=== PATIENT | male | born 1945 | race Caucasian/White ===

== ENCOUNTER 2017-01-03 21:52 | Observation (INO) ==
[2017-01-03] MEDS ORDERED: Aspirin 81 MG TAB.CHEW PO ONE (22:11)
[2017-01-03 22:31] LABS: Basophils # 0.1 K/mcL (0.0-0.2); Basophils % 0.7 %; Eosinophils # 0.1 K/mcL (0.0-0.6); Eosinophils % 0.8 %; Hematocrit 46.4 % (37.5-50.1); Immature Granulocytes % 0.4 % (0-4); Lymphocytes # 2.3 K/mcL (0.6-4.6); Lymphocytes % 25.8 %; Mean Corpuscular HGB Conc 34.5 g/dL (31.6-35.5); Mean Corpuscular Volume 89.9 fL (83.0-100.0); Mean Platelet Volume 9.3 fL (9.4-12.4); Monocytes # 0.6 K/mcL (0.0-1.3); Monocytes % 7.1 %; Neutrophils # 5.8 K/mcL (1.6-8.9); Platelet Count 286 K/mcL (140-400); Red Cell Distribution Width 12.4 % (11.5-14.5); Segmented Neutrophils % 65.2 %
[2017-01-03 22:32] LABS: INR 1.1; Prothrombin Time 11.9 Seconds (9.4-12.1); Red Blood Count 5.16 M/mcL (4.19-5.50)
[2017-01-03 22:35] LABS: Activated Partial Thrombo Time 30.8 Seconds (26.0-36.0)
[2017-01-03 22:40] LABS: BUN/Creatinine Ratio 21 (6-26); Blood Urea Nitrogen 19 mg/dL (8-26); Calcium 10.3 mg/dL (8.6-10.8); Carbon Dioxide 25 mEq/L (19-29); Chloride 101 mEq/L (98-109); Glucose 169 mg/dL (70-99); Osmolality,Calculated 288 (280-300); Potassium 3.8 mEq/L (3.5-4.5); Sodium 136 mEq/L (136-145); eGFR For African Americans > 60 (> 60); eGFR For Non-African Americans > 60 (> 60)
[2017-01-03] MEDS ORDERED: Nitroglycerin 1 INCH/GM PACKET TP ONE (23:01)
[2017-01-04] MEDS ORDERED: *HR* Heparin 5,000 UNIT/ML VIAL IVP PRN ×2 (01:41)
[2017-01-04] MEDS ORDERED: *HR* Heparin 5,000 UNIT/ML VIAL IVP ONE (01:41)
[2017-01-04] MEDS ORDERED: *HR* Ticagrelor 90 MG TABLET PO ONE (01:41)
[2017-01-04] MEDS ORDERED: Heparin 25,000 UNIT/500 ML D5W 25,000 UNIT/500 ML MLS IVC SCH (01:45)
--- NOTE | 2017-01-04 02:04 | Emergency Department Note ---
General Adult HPI - General Chief complaint: ED Chest Pain Stated complaint: chest pain Source: patient Limitations: no limitations Nursing Notes Reviewed: Yes Vital Signs Reviewed: Yes - History of Present Illness HPI Narrative: This is a 71-year-old male presents with concern for chest pain. He has 3 cardiac stents. He has seen Dr. Mcbride in the past. He admits to belching as well as upper abdominal fullness over the past few hours. He has no fever, chills, night sweats. He feels like he needs to burp. Pain Scale: 0 - Related Data Allergies Allergy/AdvReac Type Severity Reaction Status Date / Time codeine AdvReac Vomiting Verified 01/03/17 22:53 nitroglycerin AdvReac Hypotension Verified 01/03/17 22:53 All systems ED: reviewed and negative except as stated. Past Medical History - Past Medical History Medical history: Reports: diabetes, hyperlipidemia, hypertension Psychiatric history: Reports: no psych history - Social History Smoking Status: Former smoker Smokeless Tobacco Status: No Alcohol use: Reports: none Drug use: Reports: unknown Physical Exam - General Limitations: no limitations General appearance: alert, in no apparent distress - Head Head exam: atraumatic - Eye Eye exam: Present: normal appearance - ENT ENT exam: normal exam, normal oropharynx - Neck Neck exam: Present: normal inspection, full ROM - Chest Chest inspection: Present: normal inspection - Respiratory Respiratory exam: Present: normal lung sounds bilaterally - Cardiovascular Cardiovascular exam: Present: regular rate, normal rhythm - Abdominal Exam Abdominal exam: Present: soft, Non-Tender - Male exam: Present: normal inspection - Extremities Exam Extremities exam: Present: normal inspection, full ROM - Expanded Lower Extremity Exam Hip/Pelvis exam: Present: normal inspection, full ROM Upper leg exam: Present: normal inspection, full ROM Neurovascular/Tendon exam: Present: normal capillary refill Gait: observed and normal - Back Exam Back exam: Present: normal inspection, full ROM - Neurological Exam Neurological exam: Present: alert, oriented X3, CN II-XII intact - Psychiatric Psychiatric exam: Present: normal affect, normal mood - Skin Skin exam: Present: warm, dry Course Vital Signs Temperature 98.3 F 01/03/17 21:54 Pulse Rate 87 01/03/17 21:54 Respiratory Rate 18 01/03/17 21:54 Blood Pressure 196/98 01/03/17 21:54 O2 Sat by Pulse Oximetry 98 01/03/17 21:54 Temperature 98.3 F 01/03/17 21:54 Pulse Rate 84 01/04/17 00:07 Respiratory Rate 18 01/04/17 00:07 Blood Pressure 113/75 01/04/17 00:07 O2 Sat by Pulse Oximetry 98 01/04/17 00:07 Oxygen Delivery Oxygen Delivery Room Air Medical Decision Making - MDM Narrative Medical decision making narrative: Male patient with typical anginal symptoms. History of coronary artery disease. Nitroglycerin and aspirin administered. Initial EKG shows sinus rhythm with nonspecific ST segment changes. He did have diaphoresis as well as ongoing belching in the department and his EKG was repeated. It does show some changes in leads 2, 3, aVF. There are nonspecific. Upon reviewing these changes I immediately called the fire control assistant and showed him a copy of the EKG. There is no intervention at this time. Heparin in [place] to. A third EKG was repeated which shows improvement of the previously found changes. Patient will be admitted to the floor with consult the loom control chain builder. - Medical Records Medical records reviewed: Yes I reviewed the patient's medical records. - Lab Data Lab results reviewed: Yes I reviewed the patient's lab results. Result diagrams: 01/03/17 22:10 01/03/17 22:10 Lab Results 01/03/17 01/03/17 01/03/17 Range/Units 22:10 22:10 22:10 WBC 8.9 (4.3-11.1) K/mcL RBC 5.16 (4.19-5.50) M/mcL Hgb 16.0 (12.9-16.9) g/dL Hct 46.4 (37.5-50.1) % MCV 89.9 (83.0-100.0) fL MCH 31.0 (28.0-33.3) pg MCHC 34.5 (31.6-35.5) g/dL RDW 12.4 (11.5-14.5) % Plt Count 286 (140-400) K/mcL MPV 9.3 L (9.4-12.4) fL Immature Gran % 0.4 (0-4) % Seg Neutrophils % 65.2 % Lymphocytes % 25.8 % Monocytes % 7.1 % Eosinophils % 0.8 % Basophils % 0.7 % Neutrophils # 5.8 (1.6-8.9) K/mcL Lymphocytes # 2.3 (0.6-4.6) K/mcL Monocytes # 0.6 (0.0-1.3) K/mcL Eosinophils # 0.1 (0.0-0.6) K/mcL Basophils # 0.1 (0.0-0.2) K/mcL PT 11.9 (9.4-12.1) Seconds INR 1.1 APTT 30.8 (26.0-36.0) Seconds Sodium (136-145) mEq/L Potassium (3.5-4.5) mEq/L Chloride (98-109) mEq/L Carbon Dioxide (19-29) mEq/L BUN (8-26) mg/dL Creatinine (0.72-1.25) mg/dL Est GFR ( Amer) (> 60) Est GFR (Non-Af Amer) (> 60) BUN/Creatinine Ratio (6-26) Glucose (70-99) mg/dL POC Glucose (58-89) Calculated Osmolality (280-300) Calcium (8.6-10.8) mg/dL Troponin I (0-0.03) ng/mL B-Natriuretic Peptide < 10 (0-100) pg/mL 01/03/17 01/03/17 01/04/17 Range/Units 22:10 22:10 01:09 WBC (4.3-11.1) K/mcL RBC (4.19-5.50) M/mcL Hgb (12.9-16.9) g/dL Hct (37.5-50.1) % MCV (83.0-100.0) fL MCH (28.0-33.3) pg MCHC (31.6-35.5) g/dL RDW (11.5-14.5) % Plt Count (140-400) K/mcL MPV (9.4-12.4) fL Immature Gran % (0-4) % Seg Neutrophils % % Lymphocytes % % Monocytes % % Eosinophils % % Basophils % % Neutrophils # (1.6-8.9) K/mcL Lymphocytes # (0.6-4.6) K/mcL Monocytes # (0.0-1.3) K/mcL Eosinophils # (0.0-0.6) K/mcL Basophils # (0.0-0.2) K/mcL PT (9.4-12.1) Seconds INR APTT (26.0-36.0) Seconds Sodium 136 (136-145) mEq/L Potassium 3.8 (3.5-4.5) mEq/L Chloride 101 (98-109) mEq/L Carbon Dioxide 25 (19-29) mEq/L BUN 19 (8-26) mg/dL Creatinine 0.90 (0.72-1.25) mg/dL Est GFR ( Amer) > 60 (> 60) Est GFR (Non-Af Amer) > 60 (> 60) BUN/Creatinine Ratio 21 (6-26) Glucose 169 H (70-99) mg/dL POC Glucose 132 H (58-89) Calculated Osmolality 288 (280-300) Calcium 10.3 (8.6-10.8) mg/dL Troponin I 0.00 (0-0.03) ng/mL B-Natriuretic Peptide (0-100) pg/mL Critical Care Time Total Critical Care Time: 35 Attestation: I spent greater than 35 minutes of critical care time resuscitating this acutely ill patient suffering from ACS. Patient be admitted to the floor. Her mental critical condition with high potential for life-threatening deterioration. Critical care time was excluding billable procedures.
[2017-01-04 02:23] LABS: Hematocrit 42.3 % (37.5-50.1); Hemoglobin 14.5 g/dL (12.9-16.9); Immature Platelets 3.3 % (1.1-6.1); Mean Corpuscular HGB Conc 34.3 g/dL (31.6-35.5); Mean Corpuscular Hemoglobin 31.1 pg (28.0-33.3); Mean Corpuscular Volume 90.8 fL (83.0-100.0); Mean Platelet Volume 9.6 fL (9.4-12.4); Red Blood Count 4.66 M/mcL (4.19-5.50); Red Cell Distribution Width 12.7 % (11.5-14.5)
[2017-01-04] MEDS ORDERED: Naloxone 0.4 MG/ML INJ IVP PRN (02:23)
[2017-01-04] MEDS ORDERED: Acetaminophen 325 MG TABLET PO PRN (02:23)
[2017-01-04] MEDS ORDERED: *HR* Morphine 2 MG/ML SYRINGE IVP PRN (02:23)
[2017-01-04] MEDS ORDERED: Ondansetron ODT 4 MG TAB.RAPDIS SL PRN (02:23)
[2017-01-04 02:32] LABS: INR 1.1
[2017-01-04 02:35] LABS: Activated Partial Thrombo Time 30.5 Seconds (26.0-36.0)
--- NOTE | 2017-01-04 03:35 | Internal Med History&Physical ---
<Tyrese Fabian - Last Filed: 01/04/17 03:29> Date of Encounter: 01/04/17 Time of Encounter: 02:45 Assessment and Plan (1) Chest pressure Current visit: Yes Status: Acute Patient presented with chest pressure. Symptoms resolved after arriving to the emergency department. Clinically significant he has a history of coronary artery disease for which she is compliant with his indications including aspirin and Plavix daily. - Patient exercises regularly, stress test at this time is not indicated. - Troponin 2 is 0.00 Plan: - Troponin 1 - Lipid panel - hardboard supervisor (2) Coronary artery disease Current visit: Yes Status: Acute History of coronary disease, coronary stents 3 Plan: - Continue atorvastatin 20 mg by mouth nightly Qualifiers: Qualified Code(s): I25.10 - Atherosclerotic heart disease of [place] coronary artery without angina pectoris (3) Type 2 diabetes mellitus Current visit: Yes Status: Acute Type II diabetic, patient on oral medications only including metformin Plan: - Before meals at bedtime glucose checks - Low-dose insulin sliding scale Qualifiers: Qualified Code(s): E11.9 - Type 2 diabetes mellitus without complications (4) Hypertension Current visit: Yes Status: Acute Patient is a history of hypertension. Controlled at home with blood pressure medications. - Blood pressure at the time of admission was 198/98, hypertension resolved since admission. Plan: - Continue home antihypertensive regimen. Qualifiers: Qualified Code(s): I10 - Essential (primary) hypertension (5) DVT prophylaxis Current visit: Yes Status: Acute Lovenox 40 mg every morning Internal Medicine - H&P: HPI Chief complaint: chest pressure Admitted From: Emergency Dept Plans for Post Hospital Care: Home History of present illness: Mr. Lee is a 71 year old male hx of coronary stents X3 with last one roughly 7yrs ago, DM type II, HTN admitted to the general medical floor for chest pressure. Mr. Lee says that he has been riding his bike roughly 11 miles per day for over a month now without any complications. Today he rode his bike 11 miles and then when he got home he was cleaning his garage. After his physical activity without any chest discomfort or chest pressure or nausea vomiting diarrhea constipation he decided rest in his recliner. We will sitting in his recliner he said he had the feeling of a balloon expanding in his chest with a pressure feeling. He asked his check his blood pressure and it was systolically 140s. He said his blood pressures usually around 110. The symptoms started around 1630 this evening and he did not present emergency department until 2200. He did not take any medications in between. With his previous coronary symptoms in the past he had pain in his neck and supraclavicular region. He denies any chest pain, shortness of breath or discomfort while physically active in the preceding days. He says his diet is mainly been meat and vegetables as he is working on improving his A1c which was 8.1 last time it was checked. He has been compliant with all his medications. He said the chest discomfort improved after arriving to the emergency department. He denies any current chest discomforts. He denies any other concerning symptoms. Past Med Surg Social Fam HX - Past Medical History Medical history: diabetes, hyperlipidemia, hypertension Psychiatric history: no psych history - Past Surgical History Surgical History: cholecystectomy - Social History Smoking Status: Former smoker Smokeless Tobacco Status: No Alcohol use: none Drug use: unknown - Family History Father Living Status: Age at : 50 Cause of : SD Hx Family Cardiac Disorders: Yes Internal Medicine - H&P: Meds Amiloride/HCTZ 5-50mg [Moduretic 5-50mg] 1 each PO DAILY 01/04/17 [History] Atorvastatin [Lipitor] 20 mg PO 1800 01/04/17 [History] Clopidogrel [Plavix] 75 mg PO DAILY 01/04/17 [History] Finasteride [Proscar] 5 mg PO 1800 01/04/17 [History] Lisinopril [Zestril] 10 mg PO 1800 01/04/17 [History] Metoprolol Succinate 100 mg PO DAILY 01/04/17 [History] amLODIPine [Norvasc] 5 mg PO DAILY 01/04/17 [History] glipiZIDE [Glipizide] 10 mg PO BIDWM 01/04/17 [History] metFORMIN [Glucophage] 1,000 mg PO BIDWM 01/04/17 [History] Allergies codeine Adverse Reaction (Verified 01/03/17 22:53) Vomiting nitroglycerin Adverse Reaction (Verified 01/03/17 22:53) Hypotension All Systems PM: A 10-system review of systems was performed and is negative for pertinent findings except as documented above in the HPI. - Constitutional Constitutional: no chills, no fever(s), no night sweats - EENT Eyes: no change in vision, no discharge, no pain, no photophobia Ears: no ear discharge, no ear pain, no tinnitus Nose, mouth and throat: no dysphagia, no nasal discharge, no neck pain, no sore throat - Cardiovascular Cardiovascular ROS IM: chest pain (Chest pressure), no diaphoresis, no dyspnea, no lightheadedness, no palpitations, no syncope - Respiratory Respiratory: no cough, no dyspnea, no wheezing, no excessive phlegm production - Gastrointestinal Gastrointestinal: no abdominal pain, no diarrhea, no hematemesis, no hematochezia, no melena, no nausea, no vomiting - Musculoskeletal Musculoskeletal ROS IM: no numbness, no tingling - Integumentary Integumentary IM: no rash, no unusual bruising - Neurological Neurological ROS: no confusion, no convulsions, no focal weakness, no numbness, no tingling, no tremor(s) - Hematologic/Lymphatic Hematologic/Lymphatic: no easy bruising - Constitutional Vitals: Temp Pulse Resp BP Pulse Ox 97.6 F 87 16 110/66 97 01/04/17 03:03 01/04/17 03:03 01/04/17 03:03 01/04/17 03:03 01/04/17 03:03 Exam: General: Patient alert, awake, oriented 3, interactive, in no acute distress HEENT: Normocephalic, atraumatic, pupils equal reactive to light, nasal cavity patent and open septum median position, oral mucosa moist, uvula midline, neck supple trachea midline no palpable lymphadenopathy, no thyromegaly. Chest: Symmetric bilateral correlating with respiratory effort, effort nonlabored. Cardiac: Regular rate and rhythm, positive S1 and S2. no bruits appreciated bilateral carotids, Radial pulses 2+ bilateral, posterior tibial and dorsal pedal pulses 2+ bilateral. Respiratory: Clear to auscultation all lung [place] Abdomen: Soft, nontender, positive bowel sounds, no palpable masses appreciated on examination Extremities: Symmetric bilateral, bilateral lower extremities without erythema or edema patient moving all 4 extremities spontaneously. Neurologic: No focal deficits appreciated on examination. Face symmetric, muscle strength symmetric bilateral upper and lower extremities. Internal Med - H&P Results - Labs CBC & Chem 7: 01/04/17 02:13 01/03/17 22:10 Labs: Short CBC 01/04/17 Range/Units 02:13 WBC 9.7 (4.3-11.1) K/mcL Hgb 14.5 D (12.9-16.9) g/dL Hct 42.3 (37.5-50.1) % Plt Count 292 (140-400) K/mcL - VTE Reasons for not Prescribing Prophylaxis: Treatment not Indicated - Low risk for VTE <Tamia Vasquez - Last Filed: 01/04/17 04:56> Date of Encounter: 01/04/17 Internal Medicine - H&P: HPI History of present illness: Mr. Lee is a 71 year old male All Systems PM: A 10-system review of systems was performed and is negative for pertinent findings except as documented above in the HPI. - Constitutional Vitals: Temp Pulse Resp BP Pulse Ox 97.6 F 87 16 110/66 97 01/04/17 03:03 01/04/17 03:03 01/04/17 03:03 01/04/17 03:03 01/04/17 03:03 Internal Med - H&P Results - Labs CBC & Chem 7: 01/04/17 03:36 01/04/17 03:36 Labs: Short CBC 01/04/17 01/04/17 Range/Units 02:13 03:36 WBC 9.7 11.0 (4.3-11.1) K/mcL Hgb 14.5 D 15.5 (12.9-16.9) g/dL Hct 42.3 43.9 (37.5-50.1) % Plt Count 292 288 (140-400) K/mcL Neutrophils # 8.1 (1.6-8.9) K/mcL BMP 01/04/17 03:36 Sodium 135 L Potassium 3.9 Chloride 100 Carbon Dioxide 25 BUN 24 Creatinine 0.94 Glucose 182 H Calcium 10.4 Liver Function 01/04/17 Range/Units 03:36 Total Bilirubin 1.5 H (0.2-1.2) mg/dL AST 14 (5-34) Units/L ALT 11 (0-55) Units/L Alkaline Phosphatase 61 (38-126) Units/L Albumin 4.6 (3.5-5.0) g/dL - Attending Attestation I performed history and physical examination of the patient and discussed management with the Resident. I reviewed the Residents note and agree with documented findings and plan of care. 71 Y/M with h/o CAD s/p coronary stents X3 with last one in 2006, DM type II ( last A1C 8.4%), HTN presented to the ER with chest pressure / Balloon expanding feeling in the chest, while he was sitting in the recliner. His systolic BP was apparently in the 140s (his SBP usually in the 110s). His symptoms lasted several hours until he presented to the ER. His BP was 196/98 in the ER Improved now. He thinks that his symptoms improved since his BP improved. Of note: has been riding his bike roughly 11 miles per day for over a month now without any complications / chest pain. With his previous coronary symptoms in the past, he had pain in his neck and supraclavicular region. O/E: Not in acute distress. No chest wall tenderness. Lungs clear to auscultation. Cardiac regular rate and rhythm. EKG personally reviewed by me and shows sinus rhythm with no acute ST-T changes. CXR shows no acute process. Troponin is negative. A/P: Chest pressure / pain: Atypical. Unlikely related to cardiac ischemia. He has good exercise tolerance bikes 11 miles / day. Trend troponins if negative , I do not think he needs any stress test. If troponins are positive will consult anesthesiologist assistant certified. Will obtain echocardiogram. CAD: Continue his home medications.
[2017-01-04] MEDS ORDERED: D5% in Water 1,000 ML IVC PRN (03:42)
[2017-01-04] MEDS ORDERED: Dextrose Gel 15 GM PO PRN ×2 (03:42)
[2017-01-04] MEDS ORDERED: *HR* Dextrose 50 % in Water (Syg) 50 ML SYRINGE IVP PRN (03:42)
[2017-01-04 03:54] LABS: Basophils # 0.1 K/mcL (0.0-0.2); Basophils % 0.5 %; Eosinophils # 0.1 K/mcL (0.0-0.6); Eosinophils % 1.2 %; Hematocrit 43.9 % (37.5-50.1); Hemoglobin 15.5 g/dL (12.9-16.9); Immature Granulocytes % 0.6 % (0-4); Lymphocytes # 1.9 K/mcL (0.6-4.6); Mean Corpuscular HGB Conc 35.3 g/dL (31.6-35.5); Mean Corpuscular Hemoglobin 31.9 pg (28.0-33.3); Mean Corpuscular Volume 90.3 fL (83.0-100.0); Mean Platelet Volume 9.9 fL (9.4-12.4); Monocytes # 0.8 K/mcL (0.0-1.3); Monocytes % 7.1 %; Neutrophils # 8.1 K/mcL (1.6-8.9); Platelet Count 288 K/mcL (140-400); Red Blood Count 4.86 M/mcL (4.19-5.50); Red Cell Distribution Width 12.7 % (11.5-14.5); Segmented Neutrophils % 73.6 %
[2017-01-04 04:16] LABS: Alanine Aminotransferase 11 Units/L (0-55); Albumin 4.6 g/dL (3.5-5.0); Alkaline Phosphatase 61 Units/L (38-126); Aspartate Amino Transferase 14 Units/L (5-34); BUN/Creatinine Ratio 26 (6-26); Bilirubin,Total 1.5 mg/dL (0.2-1.2); Blood Urea Nitrogen 24 mg/dL (8-26); Calcium 10.4 mg/dL (8.6-10.8); Carbon Dioxide 25 mEq/L (19-29); Chloride 100 mEq/L (98-109); Chol/HDL Ratio 3.7 (0-4.9); Cholesterol 131 mg/dL (< 200); Globulin 2.3 g/dL (2.4-3.5); Glucose 182 mg/dL (70-99); HDL Cholesterol 35 mg/dL (40-59); LDL Cholesterol,Calculated 81 mg/dL (0-99); Osmolality,Calculated 289 (280-300); Potassium 3.9 mEq/L (3.5-4.5); Sodium 135 mEq/L (136-145); Total Protein 6.9 g/dL (6.0-8.3); Triglycerides 73 mg/dL (< 150); eGFR For African Americans > 60 (> 60); eGFR For Non-African Americans > 60 (> 60)
[2017-01-04] MEDS ORDERED: amLODIPine 5 MG TABLET PO SCH (09:00)
[2017-01-04] MEDS ORDERED: Metoprolol XL (24 HR) Succ 50 MG TAB.ER.24H PO SCH (09:00)
[2017-01-04] MEDS: Insulin LISPRO 300 UNITS/3 ML VIAL SQ SCH ×3 (09:02→17:07)
--- NOTE | 2017-01-04 14:36 | Discharge Summary ---
Date of Encounter: 01/04/17 Time of Encounter: 10:15 - Discharge Diagnosis (1) Chest pressure Priority: Primary Status: Acute Comments: Patient reports diffuse lower chest and upper abdomen pressure. He states it feels like there was a balloon and narrow. He reports nausea, no vomiting, weight states that he was clammy. She denies radiation. States that it lasted from 1700 last night until midnight last night. There was no change with food. He said that he did try to drink 7-Up and takes Tums, both without change in condition or pain. Patient states that once his blood pressure came down the chest pain was resolved, he has not had it since. He will follow up with Dr. Pedroza an outpatient basis. Troponins were negative 2, lipid profile was within normal limits. His echocardiogram showed an LVEF of 60% with normal systolic function, mild diastolic dysfunction, normal RV size and function, no significant valvular dysfunction or no pulmonary hypertension. All wall motion segments showed normal motion. Patient denies pain or any associated symptoms since last night in the emergency department. His lungs are clear, he has no peripheral edema. He will follow-up with his icebox man on outpatient basis. Dr. Pedroza. (2) Type 2 diabetes mellitus Priority: Secondary Status: Chronic Comments: Blood glucose has been well controlled in the inpatient setting. Follow up with primary care physician and continue normal home medications. A1c was not drawn on arrival, patient states that he is not staying tonight. He is unsure what his previous A1c was or when it was drawn. Qualifiers: Diabetes mellitus complication status: without complication Diabetes mellitus intermediate project manager insulin use: without care home use Qualified Code(s): E11.9 - Type 2 diabetes mellitus without complications (3) Hypertension Priority: Secondary Status: Chronic Comments: Continue home medications. Well-controlled inpatient setting. Qualifiers: Hypertension type: essential hypertension Qualified Code(s): I10 - Essential (primary) hypertension (4) Coronary artery disease Priority: Secondary Status: Chronic Comments: Plan as above. Continue aspirin, Plavix, statin, add Imdur 30 mg by mouth daily. Qualifiers: Coronary Disease-Associated Artery/Lesion type: [place] artery [place] vs. transplanted heart: [place] heart Associated angina: without angina Qualified Code(s): I25.10 - Atherosclerotic heart disease of [place] coronary artery without angina pectoris (5) DVT prophylaxis Priority: Secondary Status: Acute Comments: Ryannex subcutaneous. - Discharge Medications Prescriptions: Isosorbide MONOnitrate (24 HR) [Imdur] 30 mg PO DAILY #30 tab.er.24h Home Medications: ALPRAZolam [Xanax 0.5 MG Tablet] 0.5 mg PO TID PRN 01/04/17 [History] Amiloride/HCTZ 5-50mg [Moduretic 5-50mg] 1 each PO DAILY 01/04/17 [History] Aspirin Enteric Coated [Aspirin EC] 81 mg PO DAILY 01/04/17 [History] Atorvastatin [Lipitor] 20 mg PO 1800 01/04/17 [History] Clopidogrel [Plavix] 75 mg PO DAILY 01/04/17 [History] Finasteride [Proscar] 5 mg PO 1800 01/04/17 [History] Isosorbide MONOnitrate (24 HR) [Imdur] 30 mg PO DAILY #30 tab.er.24h 01/04/17 [ Rx] Lisinopril [Zestril] 10 mg PO 1800 01/04/17 [History] Metoprolol Succinate 100 mg PO DAILY 01/04/17 [History] amLODIPine [Norvasc] 5 mg PO DAILY 01/04/17 [History] glipiZIDE [Glipizide] 10 mg PO BIDWM 01/04/17 [History] metFORMIN [Glucophage] 1,000 mg PO BIDWM 01/04/17 [History] Allergies/Adverse Reactions: Allergies codeine Adverse Reaction (Verified 01/03/17 22:53) Vomiting nitroglycerin Adverse Reaction (Verified 01/03/17 22:53) Hypotension Procedures/tests Complete & Pending: Procedures Performed prior 72 hours Category Date Time Status EV echocardiogram Routine Y 01/04/17 04:54 Completed Date of admission: 01/04/17 01:25 Primary care physician: Rita Trevino Discharging clinician: Heather Parekh Anticipated date of discharge: 01/04/17 - Patient Status Disposition: Home, Self-Care Functional capacity at discharge: independent ambulation Overall status at discharge: patient is back to baseline - Discharge Instructions Follow Up With: Tyrese Chirinos DO [Primary Care Provider] - Forms: ED Satisfaction Letter Additional Instructions: Please follow-up with her primary care physician in the next 7-10 days for reevaluation. Resume your normal home medications. Start Imdur 30 mg by mouth daily in the morning. Follow up with your icebox man on an outpatient basis as soon as you can get an appointment. Return to the emergency department immediately if your pain returns or becomes worse, or for any other problems or concerns that you may have. - Diet and Activity Activity: resume usual activities as tolerated Diet: diabetic diet Interval History: Patient reports at about midnight last night, he began having diffuse low chest , upper abdomen pain with nausea. Says it lasted approximately 7 hours from 5 PM until midnight. There was no change with food. He says he tried to drink 7- Up so he could belch, and tried Tums, both without relief. He reports that he has had GERD in the past but was taken off his medications, as he should have been. He reports nausea with this pain, no vomiting and no radiation. When he states he became pale and clammy while he was in the emergency department. He is a patient of Dr. Pedroza and will follow up outpatient. He repeated to me multiple times that he was told by Dr. Pedroza cannot do stress tests due to the fact that they do not work on him. He states that he has had stress tests in the past and has gone home and had a heart attack within days after a negative stress test. We have no record of stress tests here that I am able to find. He did have an echocardiogram that shows LVEF 60%, normal LV size and systolic function. There is evidence of mild diastolic dysfunction of the left ventricle. Normal RV size and function, no significant valvular dysfunction, no pulmonary hypertension, and all wall segments showed normal motion. Patient denies chest pain since being in the emergency room last night. His troponins were negative 2 and his EKG was negative for any ischemic changes. His lipid panel was within normal limits. He is unaware of when his last A1c was what the result was, again, there is no result available for me to find. He will continue his normal home medications, as well as adding Imdur 30 mg by mouth daily for chest pain. His vital signs have been within normal limits. His labs have been stable and within normal limits. His physical exam is unremarkable, as was previously documented. Patient declines staying overnight for stress test tomorrow for reasons stated above. Patient is ready and appropriate for discharge. Hospital course: Mr. Lee is a 71 year old male - Time Spent with Patient Total time spent providing and/or coordinating discharge services: Less than 30 minutes - Constitutional Vitals: Temp Pulse Resp BP Pulse Ox 97.7 F 78 16 115/73 97 01/04/17 12:21 01/04/17 12:21 01/04/17 12:21 01/04/17 12:21 01/04/17 12:21 General appearance: Present: A&O X 3, pleasant, no acute distress, answers questions appropriately - Head Head exam: Present: normal inspection - Eye Eye exam: Present: normal appearance, conjuntiva pink - ENT ENT exam: Present: normal exam, normal external ear exam - Neck Neck exam general surgery: Present: normal inspection. Absent: lymphadenopathy , tenderness - Respiratory Respiratory exam: Present: CTAB. Absent: chest wall tenderness, decreased breath sounds, rales, respiratory distress, rhonchi, stridor, wheezes - Cardiovascular Cardiovascular exam: Present: RRR, +S1, +S2. Absent: distant heart sounds, systolic murmur - GI/Abdominal GI/Abdominal exam: Present: normal bowel sounds, soft. Absent: hepatomegaly, tenderness - Extremities Exam Extremities exam: Present: warm, radial pulses palpable and symetrical. Absent : pedal edema, tenderness - Neurological Exam Neurological exam: Present: alert, oriented X3, no focal deficits, strengths equal and symetr throughout. Absent: facial droop, speech deficit - Skin Skin exam: Present: dry, intact, normal color, warm. Absent: rash - VTE Reasons for not Prescribing Prophylaxis: Treatment not Indicated - Low risk for VTE
[2017-01-04 16:42] VITALS: BP 132/84
[2017-01-04] MEDS ORDERED: Finasteride 5 MG TABLET PO SCH (18:00)
--- NOTE | 2017-01-04 20:06 | Electrocardiograph Report ---
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
--- NOTE | 2017-01-04 20:08 | Electrocardiograph Report ---
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
--- NOTE | 2017-01-04 20:08 | Electrocardiograph Report ---
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
[2017-01-04] MEDS ORDERED: Insulin LISPRO 300 UNITS/3 ML VIAL SQ SCH (21:00)
== END 2017-01-04 17:45 | disposition home or self-care (01) ==
LOC: EMEROO 21:52 → 3BNU 21:52
PROVIDERS: ADMIT Nurse Practitioner Family; ATTEND Nurse Practitioner Family

== ENCOUNTER 2017-05-09 17:27 | Observation (INO) ==
--- NOTE | 2017-05-09 19:09 | Emergency Department Note ---
Disposition Clinical Impression: Diplopia Disposition: Admitted As Inpatient Condition: Fair Referrals: Tyrese Chirinos DO [Primary Care Provider] - Forms: ED Satisfaction Letter Time of Disposition: 21:04 Eye Problem HPI - General Chief complaint: ED Eye Problems Stated complaint: Double vision Time Seen by Provider: 05/09/17 18:48 Source: patient Mode of arrival: ambulatory Limitations: no limitations Nursing Notes Reviewed: Yes Vital Signs Reviewed: Yes - History of Present Illness HPI Narrative: 72-year-old has a history of polymyalgia rheumatica who comes in complaining of some intermittent double vision. The patient had got new glasses and thought was related to that saw his eye doctor states is not a problem with his eyes it' s a tracking problem. They state that his tracking of his eyes's office and they were concerned they may have intracranial hemorrhage. Denies headache. Patient is being treated for polymyalgia rheumatica with steroids. Patient has not had any canned vegetables. Pt Subjective Complaint: vision change (Double vision) Onset (ago): week(s) Onset description: sudden (Sudden onset will last a [place] will go away. States if he covers one eye the symptoms resolved.) Place: home, street/outdoors Mechanism: none Pain Severity: none Context: other (History of polymyalgia rheumatica) Associated symptoms: Reports: none Treatments Prior to Arrival: none - Related Data Home Medications Medication Instructions Recorded Confirmed ALPRAZolam [Xanax 0.5 MG Tablet] 0.5 mg PO TID PRN 01/04/17 05/09/17 Amiloride/HCTZ 5-50mg [Moduretic 1 each PO DAILY 01/04/17 05/09/17 5-50mg] Aspirin Enteric Coated [Aspirin EC] 81 mg PO QPM 01/04/17 05/09/17 Atorvastatin [Lipitor] 20 mg PO 1800 01/04/17 03/09/17 Clopidogrel [Plavix] 75 mg PO DAILY 01/04/17 05/09/17 Finasteride [Proscar] 5 mg PO 1800 01/04/17 05/09/17 Lisinopril [Zestril] 10 mg PO 1800 01/04/17 05/09/17 Metoprolol Succinate 100 mg PO DAILY 01/04/17 05/09/17 amLODIPine [Norvasc] 5 mg PO DAILY 01/04/17 05/09/17 GlipiZIDE [Glipizide ER] 10 mg PO BID 05/09/17 05/09/17 Insulin Regular, Human [Novolin R] 10 unit SQ TIDWM 05/09/17 05/09/17 Metformin HCl [Glucophage] 1,000 mg PO BID 05/09/17 05/09/17 Oxycodone HCl/Acetaminophen 1 each PO Q4H 05/09/17 05/09/17 [Percocet 5-325 mg Tablet] Pantoprazole Sodium [Protonix] 40 mg PO DAILY 05/09/17 05/09/17 predniSONE [PredniSONE] 30 mg PO DAILY 05/09/17 05/09/17 Allergies Allergy/AdvReac Type Severity Reaction Status Date / Time codeine AdvReac Vomiting Verified 03/09/17 06:09 nitroglycerin AdvReac Hypotension Verified 03/09/17 06:09 Constitutional: Denies: fever, chills, weakness, weight change Eyes: Reports: vision change (Double vision). Denies: eye pain, eye discharge ENT ED: Denies: ear pain, throat pain, dental pain, hearing loss, epistaxis, congestion, dysphagia Cardiovascular: Denies: chest pain, palpitations, dyspnea on exertion, edema, syncope Respiratory: Denies: cough, dyspnea, wheezes, hemoptysis, stridor Gastrointestinal: Denies: abdominal pain, nausea, vomiting, diarrhea, constipation, hematemesis, melena, hematochezia Genitourinary: Denies: urgency, dysuria, frequency, hematuria Musculoskeletal: Denies: back pain, neck pain, arthralgia, myalgia Integumentary: Denies: rash, abrasion, lesions Neurological: Denies: headache, weakness, numbness, paresthesias, confusion, abnormal gait, vertigo Psychiatric: Denies: anxiety, depression, suicidal thoughts, homicidal thoughts , auditory hallucinations, visual hallucinations Endocrine: Denies: fatigue Hematological/Lymphatic: Denies: easy bleeding, easy bruising Allergic/Immunologic: Denies: facial swelling, urticaria Past Medical History - Past Medical History Medical history: Reports: diabetes, hyperlipidemia, hypertension Surgical history: Reports: cholecystectomy Psychiatric history: Reports: no psych history - Social History Smoking Status: Former smoker Smokeless Tobacco Status: No Alcohol use: Reports: none Drug use: Reports: unknown Physical Exam - General Limitations: no limitations General appearance: alert - Head Head exam: atraumatic, normocephalic, normal inspection - Eye Eye exam: Present: normal appearance, PERRL, EOMI - ENT ENT exam: normal exam, normal oropharynx, mucous membranes moist - Neck Neck exam: Present: normal inspection, full ROM, trachea midline - Chest Chest inspection: Present: normal inspection, symmetric chest wall rise - Respiratory Respiratory exam: Present: normal lung sounds bilaterally - Cardiovascular Cardiovascular exam: Present: regular rate, normal rhythm, normal heart sounds - Abdominal Exam Abdominal exam: Present: soft, Non-Tender. Absent: tenderness, distention, guarding, rebound, rigidity - Extremities Exam Extremities exam: Present: normal inspection, full ROM. Absent: tenderness, pedal edema - Expanded Lower Extremity Exam Neurovascular/Tendon exam: Absent: motor deficit, sensory deficit, tendon deficit Gait: observed and normal - Back Exam Back exam: Present: normal inspection, full ROM. Absent: tenderness - Neurological Exam Neurological exam: Present: alert, oriented X3 - Psychiatric Psychiatric exam: Present: normal affect - Skin Skin exam: Present: warm, dry, intact, normal color Course - Reevaluation(s) Reevaluation #1: 82-year-old with recurrent double vision. The patient has a history of polymyalgia rheumatica. Patient's sedimentation rate is elevated. Consultation obtained with neurology when admit IV steroids MRI. Time: 22:10 - Consultations Consultation #1: Discussed with Dr. Arredondo, IV steroids and admit to hospital. Time: 21:04 Consultation #2: Discussed with Time: 22:11 Vital Signs Temperature 98 F 05/09/17 17:36 Pulse Rate 78 05/09/17 17:36 Respiratory Rate 15 05/09/17 17:36 Blood Pressure 126/68 05/09/17 17:36 O2 Sat by Pulse Oximetry 97 05/09/17 17:36 Temperature 98 F 05/09/17 17:36 Pulse Rate 78 05/09/17 17:36 Respiratory Rate 15 05/09/17 17:36 Blood Pressure 126/68 05/09/17 17:36 O2 Sat by Pulse Oximetry 97 05/09/17 17:36 Oxygen Delivery Oxygen Delivery Room Air Eye - Lab Data Lab results reviewed: Yes I reviewed the patient's lab results. Result diagrams: 05/09/17 19:08 05/09/17 19:08 Lab Results 05/09/17 05/09/17 05/09/17 Range/Units 19:08 19:08 19:08 WBC 13.0 H (4.3-11.1) K/mcL RBC 4.29 (4.19-5.50) M/mcL Hgb 12.4 L (12.9-16.9) g/dL Hct 38.6 (37.5-50.1) % MCV 90.0 (83.0-100.0) fL MCH 28.9 (28.0-33.3) pg MCHC 32.1 (31.6-35.5) g/dL RDW 14.4 (11.5-14.5) % Plt Count 434 H (140-400) K/mcL MPV 8.4 L (9.4-12.4) fL Immature Gran % 1.5 (0-4) % Seg Neutrophils % 80.8 % Lymphocytes % 11.2 % Monocytes % 5.8 % Eosinophils % 0.4 % Basophils % 0.3 % Neutrophils # 10.5 H (1.6-8.9) K/mcL Lymphocytes # 1.5 (0.6-4.6) K/mcL Monocytes # 0.8 (0.0-1.3) K/mcL Eosinophils # 0.1 (0.0-0.6) K/mcL Basophils # 0.0 (0.0-0.2) K/mcL ESR (0-10) mm/hr PT 12.6 H (9.4-12.1) Seconds INR 1.2 APTT 30.7 (26.0-36.0) Seconds Sodium (136-145) mEq/L Potassium (3.5-4.5) mEq/L Chloride (98-109) mEq/L Carbon Dioxide (19-29) mEq/L BUN (8-26) mg/dL Creatinine (0.72-1.25) mg/dL Est GFR ( Amer) (> 60) Est GFR (Non-Af Amer) (> 60) BUN/Creatinine Ratio (6-26) Glucose (70-99) mg/dL Calculated Osmolality (280-300) Calcium (8.6-10.8) mg/dL Troponin I (0-0.03) ng/mL C-Reactive Protein (Less than 5) mg/L B-Natriuretic Peptide 51 (0-100) pg/mL 05/09/17 05/09/17 05/09/17 Range/Units 19:08 19:08 19:09 WBC (4.3-11.1) K/mcL RBC (4.19-5.50) M/mcL Hgb (12.9-16.9) g/dL Hct (37.5-50.1) % MCV (83.0-100.0) fL MCH (28.0-33.3) pg MCHC (31.6-35.5) g/dL RDW (11.5-14.5) % Plt Count (140-400) K/mcL MPV (9.4-12.4) fL Immature Gran % (0-4) % Seg Neutrophils % % Lymphocytes % % Monocytes % % Eosinophils % % Basophils % % Neutrophils # (1.6-8.9) K/mcL Lymphocytes # (0.6-4.6) K/mcL Monocytes # (0.0-1.3) K/mcL Eosinophils # (0.0-0.6) K/mcL Basophils # (0.0-0.2) K/mcL ESR 94 H (0-10) mm/hr PT (9.4-12.1) Seconds INR APTT (26.0-36.0) Seconds Sodium 133 L (136-145) mEq/L Potassium 4.7 H (3.5-4.5) mEq/L Chloride 98 (98-109) mEq/L Carbon Dioxide 25 (19-29) mEq/L BUN 20 (8-26) mg/dL Creatinine 0.80 (0.72-1.25) mg/dL Est GFR ( Amer) > 60 (> 60) Est GFR (Non-Af Amer) > 60 (> 60) BUN/Creatinine Ratio 25 (6-26) Glucose 212 H (70-99) mg/dL Calculated Osmolality 285 (280-300) Calcium 9.3 (8.6-10.8) mg/dL Troponin I 0.00 (0-0.03) ng/mL C-Reactive Protein 55 H (Less than 5) mg/L B-Natriuretic Peptide (0-100) pg/mL - Radiology Data Radiology results reviewed: Yes I reviewed the patient's radiology results. Chest X-Ray 05/09/17 17:50 IMPRESSION: 1. No acute cardiopulmonary disease. D/ / Mirta Dang MD / Mirta Dang MD Interpreting Provider: Mirta Dang MD Head CT 05/09/17 18:49 IMPRESSION: No acute intracranial abnormality. Minimal small-vessel ischemic changes are suggested bilaterally. D/ / Guanaco Oates / Guanaco Oates Interpreting Provider: Guanaco Oates
[2017-05-09 19:22] LABS: Basophils % 0.3 %; Eosinophils # 0.1 K/mcL (0.0-0.6); Eosinophils % 0.4 %; Hematocrit 38.6 % (37.5-50.1); Hemoglobin 12.4 g/dL (12.9-16.9); Immature Granulocytes % 1.5 % (0-4); Lymphocytes # 1.5 K/mcL (0.6-4.6); Lymphocytes % 11.2 %; Mean Corpuscular HGB Conc 32.1 g/dL (31.6-35.5); Mean Corpuscular Hemoglobin 28.9 pg (28.0-33.3); Mean Platelet Volume 8.4 fL (9.4-12.4); Monocytes # 0.8 K/mcL (0.0-1.3); Monocytes % 5.8 %; Neutrophils # 10.5 K/mcL (1.6-8.9); Platelet Count 434 K/mcL (140-400); Red Blood Count 4.29 M/mcL (4.19-5.50); Red Cell Distribution Width 14.4 % (11.5-14.5); Segmented Neutrophils % 80.8 %
[2017-05-09 19:31] LABS: INR 1.2; Prothrombin Time 12.6 Seconds (9.4-12.1)
[2017-05-09 19:34] LABS: Activated Partial Thrombo Time 30.7 Seconds (26.0-36.0); C-Reactive Protein 55 mg/L (Less than 5); Calcium 9.3 mg/dL (8.6-10.8); Carbon Dioxide 25 mEq/L (19-29); Chloride 98 mEq/L (98-109); Glucose 212 mg/dL (70-99); Potassium 4.7 mEq/L (3.5-4.5); Sodium 133 mEq/L (136-145); eGFR For African Americans > 60 (> 60); eGFR For Non-African Americans > 60 (> 60)
[2017-05-09 19:45] LABS: BUN/Creatinine Ratio 25 (6-26); Blood Urea Nitrogen 20 mg/dL (8-26); Osmolality,Calculated 285 (280-300)
[2017-05-09] MEDS ORDERED: methylPREDNISolone 125 MG/2 ML VIAL IVP ONE (20:41)
[2017-05-09] MEDS ORDERED: Ondansetron 4 MG/2 ML VIAL IVP ONE (22:16)
--- NOTE | 2017-05-10 00:37 | Internal Med History&Physical ---
<Britney Mayo - Last Filed: 05/10/17 03:04> Date of Encounter: 05/10/17 Time of Encounter: 00:00 Assessment and Plan (1) Diplopia Current visit: Yes Status: Acute Diplopia 2 weeks unchanged. Looking to the left makes it worse. Occurs 1-6x day lasting 3-4minutes Patient reports that the diplopia has resolved. History of left cataract surgery Unknown etiology. Possible left lateral rectus muscle paralysis or brainstem infarct Head CT no acute intracranial process. Minimal small-vessel ischemic changes are suggested bilaterally. CXR- no acute cardiopulmonary process Neurology consult placed MRI ordered Continue to closely monitor (2) Polymyalgia rheumatica Current visit: No Status: Acute Recent diagnosis of polymyalgia rheumatica 03/15/2017 CRP 55 Continue prednisone continue home dose oxycodone (3) Hypertension Current visit: No Status: Acute History of hypertension continue home medications Qualifiers: Hypertension type: essential hypertension Qualified Code(s): I10 - Essential (primary) hypertension (4) Coronary artery disease Current visit: No Status: Chronic History of CAD with 3 stents Continue aspirin and Plavix Qualifiers: Coronary Disease-Associated Artery/Lesion type: [place] artery [place] vs. 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 Lee is a 72 year old male with a past medical history of polymyalgia rheumatica, HTN, DM, HLD, and 3 coronary stents who presented to the hospital complaining of double vision. He reported that it started 2 weeks ago and occurs about 1 to 6 times a day lasting about 3 to 4 minutes. He states that it has remained unchanged. He reports that it gets better when he closes one eye and looking to the left makes it worse. He was seen by his eye doctor today who called Dr. Laguerre and advised the patient to go to the hospital for admission to be further evaluated for possible intracranial hemorrhage. He was told Dr. Laguerre would see him the next day. He denies nausea, vomiting, confusion , weakness, slurred speech, dizziness, headache, syncope, dysphagia, lacrimation , eye pain, abdominal pain, dysuria, melena, fever, chills, difficulty walking. He denies travel, sickness, new foods, blood clots, falls, TIA, stroke, and OR. He states this never happened before. He was admitted in February 2017 where he was diagnosed with polymyalgia rheumatica and he now sees Dr. Menchaca for treatment. He reports that he has been tapering off prednisone. Upon exam of this patient his diplopia has resolved. He stated that he is a full code. Past Med Surg Social Fam HX - Past Medical History Medical history: diabetes, hyperlipidemia, hypertension, other (Polymyalgia rheumatica) Psychiatric history: no psych history - Past Surgical History Surgical History: appendectomy, cataract, cholecystectomy, knee replacement, orthopedic, other - Social History Smoking Status: Former smoker Smokeless Tobacco Status: No Alcohol use: none Drug use: none - Family History Father Living Status: Hx Family Cardiac Disorders: Yes (OR 50yo) Mother Living Status: Hx Family Cancer: Yes (Leukemia) Internal Medicine - H&P: Meds ALPRAZolam [Xanax 0.5 MG Tablet] 0.5 mg PO TID PRN 01/04/17 [History] Amiloride/HCTZ 5-50mg [Moduretic 5-50mg] 1 each PO DAILY 01/04/17 [History] Aspirin Enteric Coated [Aspirin EC] 81 mg PO QPM 01/04/17 [History] Atorvastatin [Lipitor] 20 mg PO 1800 01/04/17 [History] Clopidogrel [Plavix] 75 mg PO DAILY 01/04/17 [History] Finasteride [Proscar] 5 mg PO 1800 01/04/17 [History] Lisinopril [Zestril] 10 mg PO 1800 01/04/17 [History] Metoprolol Succinate 100 mg PO DAILY 01/04/17 [History] amLODIPine [Norvasc] 5 mg PO DAILY 01/04/17 [History] GlipiZIDE [Glipizide ER] 10 mg PO BID 05/09/17 [History] Insulin Regular, Human [Novolin R] 10 unit SQ TIDWM 05/09/17 [History] Metformin HCl [Glucophage] 1,000 mg PO BID 05/09/17 [History] Oxycodone HCl/Acetaminophen [Percocet 5-325 mg Tablet] 1 each PO Q4H 05/09/17 [ History] Pantoprazole Sodium [Protonix] 40 mg PO DAILY 05/09/17 [History] predniSONE [PredniSONE] 30 mg PO DAILY 05/09/17 [History] 3 Allergy/AdvReac Type Severity Reaction Status Date / Time codeine AdvReac Vomiting Verified 03/09/17 06:09 nitroglycerin AdvReac Hypotension Verified 03/09/17 06:09 All Systems PM: A 10-system review of systems was performed and is negative for pertinent findings except as documented above in the HPI. - Constitutional Constitutional: no chills, no fatigue, no fever(s), no falls, no weakness - EENT Eyes: diplopia, no blurry vision, no discharge, no itchy eyes, no loss of vision , no pain, no tunnel vision Nose, mouth and throat: no change in voice, no dysphagia - Cardiovascular Cardiovascular ROS IM: no chest pain, no diaphoresis - Respiratory Respiratory: no dyspnea, no wheezing - Gastrointestinal Gastrointestinal: no abdominal pain, no dysphagia, no melena, no nausea, no vomiting - Genitourinary Genitourinary ROS male: nocturia, no dysuria - Musculoskeletal Musculoskeletal ROS IM: no muscle weakness, no numbness - Neurological Neurological ROS: no abnormal movements, no abnormal speech, no confusion, no dizziness, no headache(s), no loss of vision, no tremor(s), no weakness - Constitutional Vitals: Temp Pulse Resp BP Pulse Ox 97.6 F 66 14 146/80 97 05/09/17 22:50 05/09/17 22:50 05/09/17 22:50 05/09/17 22:50 05/09/17 23:04 General appearance: Present: A&O X 3, pleasant, no acute distress - Head Head exam: Present: atraumatic, normal inspection, normocephalic - Eye Eye exam: Present: PERRL, conjuntiva pink. Absent: nystagmus, scleral icterus - ENT ENT exam: Present: mucous membranes moist - Respiratory Respiratory exam: Present: CTAB. Absent: rales, wheezes - Cardiovascular Cardiovascular exam: Present: RRR, +S1, +S2. Absent: clicks - GI/Abdominal GI/Abdominal exam: Present: normal bowel sounds, soft. Absent: distended, guarding - Extremities Exam Extremities exam: Absent: calf tenderness, tenderness - Neurological Exam Neurological exam: Present: alert, oriented X3, strengths equal and symetr throughout. Absent: no focal deficits, pronater drift, facial droop, speech deficit - Skin Skin exam: Present: dry Internal Med - H&P Results - Labs CBC & Chem 7: 05/09/17 19:08 05/09/17 19:08 <Sandro Adkins - Last Filed: 05/10/17 03:18> Date of Encounter: 05/10/17 Internal Medicine - H&P: HPI History of present illness: Mr. Lee is a 72 year old male All Systems PM: A 10-system review of systems was performed and is negative for pertinent findings except as documented above in the HPI. - Constitutional Vitals: Temp Pulse Resp BP Pulse Ox 97.6 F 66 14 146/80 97 05/09/17 22:50 05/09/17 22:50 05/09/17 22:50 05/09/17 22:50 05/09/17 23:04 Internal Med - H&P Results - Labs CBC & Chem 7: 05/09/17 19:08 05/09/17 19:08 - Attending Attestation I have independently sen and examined this patient , and discussed plan of care with patient and resident physician Patient presented with diplopia only. No scalp tenderness, no NEHEMIAH, no amaurosis , worse on Left eye abduction Suspect Lateral rectus palsy, although EOM is intact on exam Check Brain MRi, agree with Neuro eval Follow up with ophthal ology Low suspicion for TA/CVA Rest of details as in resident physician's documentation
[2017-05-10] MEDS ORDERED: *HR* Dextrose 50 % in Water (Syg) 50 ML SYRINGE IVP PRN (01:37)
[2017-05-10] MEDS ORDERED: D5% in Water 1,000 ML IVC PRN (01:37)
[2017-05-10] MEDS ORDERED: Dextrose Gel 15 GM PO PRN ×2 (01:37)
[2017-05-10] MEDS ORDERED: *HR* OxyCODONE/APAP 5/325 TABLET PO PRN (02:25)
[2017-05-10] MEDS ORDERED: ALPRAZolam 0.5 MG TABLET PO PRN (02:26)
[2017-05-10] MEDS ORDERED: Naloxone 0.4 MG/ML INJ IVP PRN (02:40)
[2017-05-10] MEDS ORDERED: Insulin LISPRO 300 UNITS/3 ML VIAL SQ SCH ×2 (08:00)
[2017-05-10] MEDS ORDERED: Metoprolol XL (24 HR) Succ 50 MG TAB.ER.24H PO SCH (09:00)
[2017-05-10] MEDS ORDERED: *HR* GlipiZIDE XL (24 HR) 10 MG TABLET PO SCH (09:00)
[2017-05-10] MEDS ORDERED: predniSONE 10 MG TABLET PO SCH (09:00)
[2017-05-10] MEDS ORDERED: amLODIPine 5 MG TABLET PO SCH (09:00)
[2017-05-10] MEDS: *HR* Metformin 500 MG TABLET PO SCH ×2 (09:04→10:26)
[2017-05-10] MEDS: Insulin LISPRO 300 UNITS/3 ML VIAL SQ SCH ×2 (09:15→12:25)
[2017-05-10 11:21] VITALS: BP 118/73
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
--- NOTE | 2017-05-10 14:22 | Electrocardiograph Report ---
[address] [address] Test Date: 2017-05-09 Pat Name: Juni Lee Department: 103 Room: 3B Gender: M Licensed Pharmacist: : [id number] Requested By: Hipolito Steel Order Number: [id number] Reading MD: Marilee Khan Measurements Intervals [place] Rate: 75 P: 59 IN: 149 QRS: 48 QRSD: 84 T: 49 QT: 362 QTc: 391 Interpretive Statements SINUS RHYTHM Electronically Signed On 05-10-2017 14:20:08 EST by Marilee Khan
--- NOTE | 2017-05-10 16:20 | Neurology - Consult Note ---
Date of Encounter: 05/10/17 Time of Encounter: 08:00 Assessment and Plan (1) Diplopia Status: Acute This patient who has episodes of diplopia lasting few minutes and then resolving spontaneously without any other typical signs and symptoms of TIA or stroke without any focal findings on his current neurological examination. At this time I suspect that his symptoms could be due to localized abnormality in his eyes perhaps astigmatism or could be due to cranial nerve dysfunction or perhaps difficulty with his eye muscles. At the moment is no other sinus symptoms to be suggestive of any vascular etiology. MRI of the brain is negative for any bleed or any other abnormality in his eyes or orbits. I really doubt that it is related to temporal arteritis. Especially when he did not have any headaches at this time neither has any tenderness to his localized temporal area He has elevated ESR for quite some time which is related to his polymyalgia he has been on prednisone suggested that he should continue. We should continue antiplatelet therapy. Do not think that we need to do any echocardiogram and carotid duplex as recently he had a complete workup. Suggest evaluation by ophthalmology could be done as an outpatient Continue on prednisone for now and follow-up with rheumatology Dr. Menchaca as an outpatient From neurology standpoint patient could be discharged home with follow-up with Dr. Laguerre in the next few weeks (2) Polymyalgia rheumatica Status: Acute History of Present Illness HPI: Mr. Lee is a 72 year old male know to be from recent admission to the hospital , for severe headaches, and was diagnosed with polymyalgia rheumatica,on high doses of prednisone, seen Rheumatology as out pt, also has history of HTN, DM, HLD, and 3 coronary stents who presented to the hospital complaining of double vision. He reported that it started 2 weeks ago and occurs about 1 to 6 times a day lasting about 3 to 4 minutes. He reports that it gets better when he closes one eye and looking to the left makes it worse. He was seen by his eye doctor today who called Dr. Laguerre and advised the patient to go to the hospital for further evaluation, He denies nausea, vomiting, confusion, weakness, slurred speech, dizziness, headache, syncope, dysphagia, lacrimation, eye pain, abdominal pain, dysuria, melena, fever, chills, difficulty walking. He was admitted in February 2017 where he was diagnosed with polymyalgia rheumatica and he now sees Dr. Nikolai was on 60 on prednisone now on 30 mg, patient also has a CT angiogram of his head and neck and was reported negative for any critical stenosis or any atherosclerotic disease Past Med Surg Social Fam HX - Past Medical History Medical history: diabetes, hyperlipidemia, hypertension, other (Polymyalgia rheumatica) Psychiatric history: no psych history - Past Surgical History Surgical History: appendectomy, cataract, cholecystectomy, knee replacement, orthopedic, other - Social History Smoking Status: Former smoker Smokeless Tobacco Status: No Alcohol use: none Drug use: none - Family History Father Living Status: Hx Family Cardiac Disorders: Yes (MA 50yo) Mother Living Status: Hx Family Cancer: Yes (Leukemia) Medications and Allergies ALPRAZolam [Xanax 0.5 MG Tablet] 0.5 mg PO TID PRN 01/04/17 [History] Amiloride/HCTZ 5-50mg [Moduretic 5-50mg] 1 each PO DAILY 01/04/17 [History] Aspirin Enteric Coated [Aspirin EC] 81 mg PO QPM 01/04/17 [History] Atorvastatin [Lipitor] 20 mg PO 1800 01/04/17 [History] Clopidogrel [Plavix] 75 mg PO DAILY 01/04/17 [History] Finasteride [Proscar] 5 mg PO 1800 01/04/17 [History] Lisinopril [Zestril] 10 mg PO 1800 01/04/17 [History] Metoprolol Succinate 100 mg PO DAILY 01/04/17 [History] amLODIPine [Norvasc] 5 mg PO DAILY 01/04/17 [History] GlipiZIDE [Glipizide ER] 10 mg PO BID 05/09/17 [History] Insulin Regular, Human [Novolin R] 10 unit SQ TIDWM 05/09/17 [History] Metformin HCl [Glucophage] 1,000 mg PO BID 05/09/17 [History] Oxycodone HCl/Acetaminophen [Percocet 5-325 mg Tablet] 1 each PO Q4H 05/09/17 [ History] Pantoprazole Sodium [Protonix] 40 mg PO DAILY 05/09/17 [History] predniSONE [PredniSONE] 30 mg PO DAILY 05/09/17 [History] 3 Allergy/AdvReac Type Severity Reaction Status Date / Time codeine AdvReac Vomiting Verified 03/09/17 06:09 nitroglycerin AdvReac Hypotension Verified 03/09/17 06:09 All Systems: A 10-system review of systems was performed and is negative for pertinent findings except as documented above in the HPI. Physical Examination - Vital Signs Vital Signs: Initial Vital Signs Temp Pulse Resp BP Pulse Ox 98 F 78 15 126/68 97 05/09/17 17:36 05/09/17 17:36 05/09/17 17:36 05/09/17 17:36 05/09/17 17:36 - Constitutional General appearance: comfortable - Neurologic Sensorimotor examination: intact Detailed motor examination: full strength in all major muscle groups Motor examination - right side: 5/5: deltoids, biceps, triceps, wrist flexion, wrist extension, refrigerating engineer, hip flexors, tibialis Anterior, quadriceps, toe extension (EHL), plantarflexion Motor examination - left side: 5/5: deltoids, biceps, triceps, wrist flexion, wrist extension, hip flexors, refrigerating engineer, quadriceps, tibialis Anterior, toe extension (EHL), plantarflexion Detailed sensory examination: intact Reflexes: Biceps: 1+, Triceps: 1+, Brachioradialis: 1+, Patella: 1+, Achilles: 1 + Mental Status Examination: awake, alert, oriented to person, oriented to place, oriented to time, follows commands appropriately, answers questions appropriately, no agnosia, no aphasia, no aproxia Cranial nerve examination: PERRL, EOMI, visual [place] intact, corneal reflexes brisk symmetrically, sensory to face intact, mastication intact, no facial asymmetry is present, no dysarthria, hearing is intact symmetrically, soft palate elevates bilaterally upon phonation, gag reflex intact, flexes SCM and trapezius muscles symmetrically with full power, tongue protrudes midline, no atrophy or facial fasiculations present Cerebellar examination: no dysmetria, performs finger to nose and heel to beatty symmetrically without ataxia, no gait ataxia, no truncal ataxia, no difficulty with rapid alternating movements Results - Laboratory Findings CBC and BMP: 05/09/17 19:08 05/10/17 10:17 Abnormal lab findings: Abnormal lab results WBC 13.0 K/mcL (4.3-11.1) H 05/09/17 19:08 Hgb 12.4 g/dL (12.9-16.9) L 05/09/17 19:08 Plt Count 434 K/mcL (140-400) H 05/09/17 19:08 MPV 8.4 fL (9.4-12.4) L 05/09/17 19:08 Neutrophils # 10.5 K/mcL (1.6-8.9) H 05/09/17 19:08 ESR 94 mm/hr (0-10) H 05/09/17 19:09 PT 12.6 Seconds (9.4-12.1) H 05/09/17 19:08 Sodium 133 mEq/L (136-145) L 05/09/17 19:08 Glucose 212 mg/dL (70-99) H 05/09/17 19:08 POC Glucose 303 (58-89) H 05/10/17 07:11 C-Reactive Protein 55 mg/L (Less than 5) H 05/09/17 19:08 - Diagnostic Findings Additional findings: MRI of the brain this morning is negative for any acute stroke or infarct or bleed Consult Discharge Plan - Plan Instructions: Diplopia (DC) Additional Instructions: Please follow up with your PCP in the next 7-10 days for a follow up visit. Please follow up with Dr. Menchaca as scheduled. REturn to the ER as needed for any other problems or concerns or if your symptoms return or worsen. Resume your normal home medications, diet, and activities as tolerated. Referrals: Rik Evangelista DO [Partnered Physician] - Tyrese Chirinos DO [Primary Care Provider] - 05/16/17 2:30 pm
[2017-05-10] MEDS ORDERED: Finasteride 5 MG TABLET PO SCH (18:00)
[2017-05-10] MEDS ORDERED: Aspirin Enteric Coated 81 MG Tablet PO SCH (18:00)
[2017-05-10] MEDS ORDERED: Insulin DETEMIR 100 UNIT/ML X5UNITS SQ SCH (21:00)
== END 2017-05-10 14:07 | disposition home or self-care (01) ==
LOC: EMEROO 17:27 → 3BNU 17:27
PROVIDERS: ADMIT Internal Medicine; ATTEND Registered Nurse

== ENCOUNTER 2021-10-27 06:38 | Inpatient (IN) ==
[~2021-10-27 06:38] MED LIST: *HR* Etomidate 20 MG/10 ML AMPUL IVP ONE; *HR* FentaNYL (PF) 1,000 MCG/20 ML VIAL ONE; *HR* Midazolam HCl 5 MG/5 ML VIAL IVP ONE; *HR* Norepinephrine 4 MG/4 ML VIAL IVC ONE; *HR* Rocuronium Bromide 50 MG/5 ML VIAL ONE; Calcium Gluconate 1,000 MG/10 ML VIAL ONE; DOBUTamine 1,000 MG/250 ML BAG ONE; NiCARdipine 2.5 MG/10 ML Syringe IVPB ONE; Protamine Sulfate 250 MG/25 ML VIAL IVP ONE; Tranexamic Acid 1,000 MG/10 ML VIAL ONE; niCARdipine 20 MG/200 ML MLS IVC ONE
[2021-10-27] MEDS ORDERED: Papaverine 60 MG/2 ML VIAL IVP ONE ×2 (06:39→11:15)
[2021-10-27] MEDS ORDERED: CeFAZolin Syr 2,000MG/20 ML 2,000 MG/20 ML SYRINGE IVPB ONE (07:34)
[2021-10-27] MEDS: Chlorhexidine Rinse 15 ML MOUTHWASH MM SCH ×2 (07:45→21:17)
[2021-10-27] MEDS: Ringers Solution, Lactated 1,000 ML IVC SCH (07:46)
[2021-10-27] MEDS ORDERED: Norepinephrine 4 MG in 0.9 % Sodium Chloride 250 ML IVC PRN (08:00)
[2021-10-27] MEDS ORDERED: del Nido Cardioplegia Solution PF ONE ×2 (08:00)
[2021-10-27] MEDS ORDERED: Heparin 15,000 UNIT in 0.9 % Sodium Chloride 500 ML IV ONE (08:00)
[2021-10-27] MEDS ORDERED: Buckersberg's Blood Cardioplegia PF ONE (08:00)
[2021-10-27 09:42] LABS: ABG Base Excess 0 mEq/L (-2 to 3); ABG Chloride 103 mEq/L (98-107); ABG Glucose 231 mg/dL (60-95); ABG HCO3 26 mEq/L (21-27); ABG Ionized Calcium 1.18 mmol/L (1.15-1.35); ABG Oxygen Saturation 100 % (95-98); ABG PCO2 44 mmHg (35-45); ABG PH 7.38 pH Units (7.32-7.45); ABG PO2 471 mmHg (85-104); ABG TCO2 27 mEq/L (20-26)
[2021-10-27 10:17] LABS: ABG Base Excess -1 mEq/L (-2 to 3); ABG Chloride 101 mEq/L (98-107); ABG Glucose 223 mg/dL (60-95); ABG HCO3 24 mEq/L (21-27); ABG Ionized Calcium 1.17 mmol/L (1.15-1.35); ABG Oxygen Saturation 99 % (95-98); ABG PCO2 38 mmHg (35-45); ABG PH 7.41 pH Units (7.32-7.45); ABG PO2 127 mmHg (85-104); ABG TCO2 25 mEq/L (20-26)
[2021-10-27 11:14] LABS: ABG Base Excess -1 mEq/L (-2 to 3); ABG Chloride 99 mEq/L (98-107); ABG Glucose 199 mg/dL (60-95); ABG HCO3 23 mEq/L (21-27); ABG Ionized Calcium 1.26 mmol/L (1.15-1.35); ABG Oxygen Saturation 100 % (95-98); ABG PCO2 35 mmHg (35-45); ABG PH 7.43 pH Units (7.32-7.45); ABG PO2 523 mmHg (85-104); ABG TCO2 24 mEq/L (20-26)
[2021-10-27] MEDS ORDERED: Potassium Chloride 40 MEQ/200 ML BAG IVPB PRN (11:14)
[2021-10-27] MEDS ORDERED: Naloxone 0.4 MG/ML INJ IVP PRN (11:14)
[2021-10-27] MEDS ORDERED: Acetaminophen 325 MG TABLET PO PRN (11:14)
[2021-10-27] MEDS ORDERED: *HR* Dextrose 50 % in Water (Syg) 50 ML SYRINGE IVP PRN (11:14)
[2021-10-27] MEDS ORDERED: Ondansetron 4 MG/2 ML VIAL IVP PRN (11:14)
[2021-10-27] MEDS ORDERED: DOBUTamine 1,000 MG/250 ML BAG IVC SCH (11:15)
[2021-10-27] MEDS ORDERED: Albumin Human 5% 12.5 GM/250 ML IV.SOLN IVPB PRN (11:19)
[2021-10-27] MEDS ORDERED: Calcium Gluconate 1gm/50mL 1 GM/50 ML BAG IVPB PRN (11:48)
[2021-10-27] MEDS: Norepinephrine 4 MG/254 ML IV.SOLN IVC SCH ×3 (12:00→21:16)
[2021-10-27] MEDS: Insulin Regular, Human 100 UNIT/ML IV PRN ×4 (12:15→14:30)
[2021-10-27 12:21] LABS: ABG Base Excess -2 mEq/L (-2 to 3); ABG HCO3 24 mEq/L (21-27); ABG Oxygen Saturation 99 % (95-98); ABG PCO2 41 mmHg (35-45); ABG PH 7.37 pH Units (7.32-7.45); ABG PO2 140 mmHg (85-104); ABG TCO2 25 mEq/L (20-26); Blood Gas Modality ASSIST CONTROL; Blood Gas VT 500 cc
[2021-10-27] MEDS: Dexmedetomidine HCl 400 MCG/100 ML MLS IVC SCH (12:30)
[2021-10-27 12:34] LABS: Basophils # 0.1 K/mcL (0.0-0.2); Basophils % 0.4 %; Eosinophils # 0.3 K/mcL (0.0-0.6); Eosinophils % 1.1 %; Hematocrit 37.9 % (37.5-50.1); Hemoglobin 13.1 g/dL (12.9-16.9); Lymphocytes # 2.2 K/mcL (0.6-4.6); Lymphocytes % 9.3 %; Mean Corpuscular HGB Conc 34.6 g/dL (31.6-35.5); Mean Corpuscular Hemoglobin 31.1 pg (28.0-33.3); Monocytes # 1.2 K/mcL (0.0-1.3); Platelet Count 293 K/mcL (140-400); Red Blood Count 4.21 M/mcL (4.19-5.50); Segmented Neutrophils % 83.2 %
[2021-10-27 12:38] LABS: INR 1.2; Prothrombin Time 13.3 Seconds (9.4-12.1)
[2021-10-27 12:41] LABS: Activated Partial Thrombo Time 29.9 Seconds (26.0-36.0); BUN/Creatinine Ratio 19 (6-26); Blood Urea Nitrogen 15 mg/dL (8-23); Calcium 8.6 mg/dL (8.6-10.3); Carbon Dioxide 25 mEq/L (23-29); Chloride 101 mEq/L (98-107); Glucose 276 mg/dL (70-105); Magnesium 2.8 mg/dL (1.6-2.6); Osmolality,Calculated 289 (280-300); Potassium 4.6 mEq/L (3.5-5.1); Sodium 134 mEq/L (136-145); eGFR For African Americans > 60 (> 60); eGFR For Non-African Americans > 60 (> 60)
[2021-10-27] MEDS: Pantoprazole 40 MG VIAL IVP SCH (13:02)
[2021-10-27] MEDS: niCARdipine 20 MG/200 ML MLS IVC SCH ×4 (13:04→21:17)
[2021-10-27] MEDS: *HR* FentaNYL (PF) 100 MCG/2 ML VIAL IVP PRN ×5 (14:03→23:07)
[2021-10-27] MEDS: *HR* OxyCODONE/APAP 5/325 TABLET PO PRN ×2 (14:03→18:18)
[2021-10-27] MEDS: Gabapentin 300 MG CAPSULE PO SCH ×2 (14:07→21:17)
[2021-10-27] MEDS ORDERED: Aspirin Enteric Coated 81 MG Tablet PO ONE (15:00)
[2021-10-27 15:30] LABS: ABG Base Excess -1 mEq/L (-2 to 3); ABG HCO3 25 mEq/L (21-27); ABG Oxygen Saturation 98 % (95-98); ABG PCO2 43 mmHg (35-45); ABG PH 7.37 pH Units (7.32-7.45); ABG PO2 113 mmHg (85-104); ABG TCO2 26 mEq/L (20-26); Blood Gas Modality CPAP/PS; Blood Gas Pressure Support 5 cm H2O
[2021-10-27] MEDS: CeFAZolin 2 GM/120 ML BAG IVPB SCH ×2 (15:33→23:58)
[2021-10-27 16:10] LABS: ABG Base Excess -1 mEq/L (-2 to 3); ABG HCO3 25 mEq/L (21-27); ABG Oxygen Saturation 96 % (95-98); ABG PCO2 46 mmHg (35-45); ABG PH 7.35 pH Units (7.32-7.45); ABG PO2 85 mmHg (85-104); ABG TCO2 27 mEq/L (20-26)
[2021-10-27] MEDS ORDERED: *HR* Heparin 10,000 UNIT/10 ML VIAL IR ONE (17:15)
[2021-10-27] MEDS ORDERED: Heparin 1,000 UNITS/500 mL IV.SOLN IR ONE (17:15)
[2021-10-27] MEDS ORDERED: *HR* Phenylephrine 10 MG/ML VIAL IVC ONE (17:15)
[2021-10-27] MEDS ORDERED: Mannitol 25% vial 12.5 GM/50 ML VIAL IVPB ONE (17:15)
[2021-10-27] MEDS ORDERED: Albumin Human 25% 25 GM/100 ML IV.SOLN IVPB ONE (17:15)
[2021-10-27] MEDS ORDERED: Tranexamic Acid 1,000 MG/10 ML VIAL IR ONE (17:15)
[2021-10-27] MEDS ORDERED: *HR* Magnesium Sulfate 2 GM/50 ML PIGGYBACK IVPB ONE (17:15)
[2021-10-27] MEDS ORDERED: Lidocaine 2% Syringe 100 MG/5 ML IVP ONE (17:15)
[2021-10-28] MEDS: *HR* OxyCODONE/APAP 5/325 TABLET PO PRN ×4 (00:03→22:17)
[2021-10-28] MEDS: *HR* FentaNYL (PF) 100 MCG/2 ML VIAL IVP PRN ×2 (01:14→03:12)
[2021-10-28 04:05] LABS: Basophils % 0.2 %; Hematocrit 34.6 % (37.5-50.1); Immature Granulocytes % 0.4 % (0-4); Lymphocytes # 1.2 K/mcL (0.6-4.6); Lymphocytes % 7.2 %; Mean Corpuscular HGB Conc 34.7 g/dL (31.6-35.5); Mean Corpuscular Hemoglobin 31.6 pg (28.0-33.3); Mean Corpuscular Volume 91.1 fL (83.0-100.0); Mean Platelet Volume 9.2 fL (9.4-12.4); Monocytes # 1.3 K/mcL (0.0-1.3); Monocytes % 7.8 %; Neutrophils # 14.5 K/mcL (1.6-8.9); Platelet Count 265 K/mcL (140-400); Red Cell Distribution Width 13.1 % (11.5-14.5); Segmented Neutrophils % 84.4 %; White Blood Count 17.1 K/mcL (4.3-11.1)
[2021-10-28 04:14] LABS: INR 1.3; Prothrombin Time 14.1 Seconds (9.4-12.1)
[2021-10-28 04:22] LABS: BUN/Creatinine Ratio 22 (6-26); Blood Urea Nitrogen 15 mg/dL (8-23); Calcium 8.2 mg/dL (8.6-10.3); Carbon Dioxide 26 mEq/L (23-29); Chloride 104 mEq/L (98-107); Glucose 153 mg/dL (70-105); Osmolality,Calculated 286 (280-300); Potassium 4.2 mEq/L (3.5-5.1); Sodium 136 mEq/L (136-145); eGFR For African Americans > 60 (> 60); eGFR For Non-African Americans > 60 (> 60)
[2021-10-28] MEDS: niCARdipine 20 MG/200 ML MLS IVC SCH ×2 (04:59→07:06)
[2021-10-28] MEDS ORDERED: *HR* Enoxaparin 40 MG/0.4 ML SYRINGE SQ SCH (06:00)
[2021-10-28 06:54] LABS: ABG Base Excess -2 mEq/L (-2 to 3); ABG Chloride 99 mEq/L (98-107); ABG Glucose 262 mg/dL (60-95); ABG HCO3 23 mEq/L (21-27); ABG Oxygen Saturation 99 % (95-98); ABG PCO2 38 mmHg (35-45); ABG PH 7.39 pH Units (7.32-7.45); ABG PO2 148 mmHg (85-104); ABG TCO2 24 mEq/L (20-26)
[2021-10-28] MEDS: Ringers Solution, Lactated 1,000 ML IVC SCH (07:09)
[2021-10-28] MEDS: Chlorhexidine Rinse 15 ML MOUTHWASH MM SCH ×4 (07:09→20:11)
[2021-10-28] MEDS: CeFAZolin 2 GM/120 ML BAG IVPB SCH ×2 (07:15→18:19)
[2021-10-28] MEDS: Pantoprazole 40 MG VIAL IVP SCH ×2 (07:15→08:54)
[2021-10-28] MEDS: Dexmedetomidine HCl 400 MCG/100 ML MLS IVC SCH (07:16)
[2021-10-28] MEDS: Gabapentin 300 MG CAPSULE PO SCH ×4 (07:16→20:12)
[2021-10-28] MEDS ORDERED: Ondansetron 4 MG/2 ML VIAL IVP PRN (08:06)
[2021-10-28] MEDS ORDERED: Albumin Human 5% 12.5 GM/250 ML IV.SOLN IVPB PRN (08:06)
[2021-10-28] MEDS ORDERED: *HR* OxyCODONE/APAP 5/325 TABLET PO PRN (08:06)
[2021-10-28] MEDS ORDERED: D5% in Water 1,000 ML IVC PRN (08:06)
[2021-10-28] MEDS ORDERED: Acetaminophen 325 MG TABLET PO PRN (08:06)
[2021-10-28] MEDS ORDERED: Naloxone 0.4 MG/ML INJ IVP PRN (08:06)
[2021-10-28] MEDS ORDERED: *HR* Dextrose 50 % in Water (Syg) 50 ML SYRINGE IVP PRN (08:06)
[2021-10-28] MEDS ORDERED: Dextrose 4 GM Chewable Tablets PO PRN ×2 (08:06)
[2021-10-28] MEDS: Aspirin 81 MG TAB.CHEW PO SCH (08:30)
[2021-10-28] MEDS ORDERED: Furosemide 40 MG/4 ML VIAL IVP ONE (08:36)
[2021-10-28] MEDS ORDERED: Aspirin 81 MG TAB.CHEW PO SCH (09:00)
[2021-10-28] MEDS ORDERED: *HR* FentaNYL (PF) 100 MCG/2 ML VIAL IVP PRN ×2 (11:14)
[2021-10-28] MEDS: Insulin LISPRO 300 UNITS/3 ML VIAL SUBQ SCH ×3 (12:05→20:10)
[2021-10-29] MEDS: CeFAZolin 2 GM/120 ML BAG IVPB SCH ×2 (00:03→08:08)
[2021-10-29] MEDS: *HR* Enoxaparin 40 MG/0.4 ML SYRINGE SQ SCH (04:40)
[2021-10-29 05:25] LABS: Basophils # 0.1 K/mcL (0.0-0.2); Basophils % 0.3 %; Hematocrit 34.2 % (37.5-50.1); Hemoglobin 11.1 g/dL (12.9-16.9); Immature Granulocytes % 0.7 % (0-4); Lymphocytes # 1.9 K/mcL (0.6-4.6); Lymphocytes % 9.1 %; Mean Corpuscular HGB Conc 32.5 g/dL (31.6-35.5); Mean Corpuscular Hemoglobin 30.6 pg (28.0-33.3); Mean Corpuscular Volume 94.2 fL (83.0-100.0); Mean Platelet Volume 9.7 fL (9.4-12.4); Monocytes % 9.7 %; Neutrophils # 16.3 K/mcL (1.6-8.9); Platelet Count 253 K/mcL (140-400); Red Blood Count 3.63 M/mcL (4.19-5.50); Red Cell Distribution Width 13.5 % (11.5-14.5); Segmented Neutrophils % 80.2 %; White Blood Count 20.3 K/mcL (4.3-11.1)
[2021-10-29] MEDS: *HR* OxyCODONE/APAP 5/325 TABLET PO PRN ×4 (05:29→21:08)
[2021-10-29 05:34] LABS: BUN/Creatinine Ratio 21 (6-26); Blood Urea Nitrogen 21 mg/dL (8-23); Calcium 8.4 mg/dL (8.6-10.3); Carbon Dioxide 25 mEq/L (23-29); Chloride 98 mEq/L (98-107); Glucose 260 mg/dL (70-105); Magnesium 1.8 mg/dL (1.6-2.6); Osmolality,Calculated 286 (280-300); Potassium 4.6 mEq/L (3.5-5.1); Sodium 132 mEq/L (136-145); eGFR For African Americans > 60 (> 60); eGFR For Non-African Americans > 60 (> 60)
[2021-10-29] MEDS: Aspirin 81 MG TAB.CHEW PO SCH (07:56)
[2021-10-29] MEDS: Chlorhexidine Rinse 15 ML MOUTHWASH MM SCH ×2 (07:57→21:08)
[2021-10-29] MEDS: Insulin LISPRO 300 UNITS/3 ML VIAL SUBQ SCH ×4 (07:57→21:08)
[2021-10-29] MEDS: Furosemide 40 MG/4 ML VIAL IVP SCH ×2 (08:08→21:06)
[2021-10-29] MEDS: Gabapentin 300 MG CAPSULE PO SCH ×3 (08:09→21:09)
[2021-10-29] MEDS: Pantoprazole 40 MG VIAL IVP SCH (08:09)
[2021-10-30] MEDS: *HR* Enoxaparin 40 MG/0.4 ML SYRINGE SQ SCH (04:39)
[2021-10-30] MEDS ORDERED: *HR* Metoprolol 5 MG/5 ML VIAL IVP ONE (05:31)
[2021-10-30 08:25] LABS: Basophils # 0.1 K/mcL (0.0-0.2); Basophils % 0.4 %; Eosinophils # 0.2 K/mcL (0.0-0.6); Eosinophils % 0.8 %; Hematocrit 33.1 % (37.5-50.1); Hemoglobin 10.7 g/dL (12.9-16.9); Immature Granulocytes % 0.7 % (0-4); Lymphocytes # 1.8 K/mcL (0.6-4.6); Lymphocytes % 9.7 %; Mean Corpuscular HGB Conc 32.3 g/dL (31.6-35.5); Mean Corpuscular Hemoglobin 30.7 pg (28.0-33.3); Mean Corpuscular Volume 94.8 fL (83.0-100.0); Mean Platelet Volume 9.6 fL (9.4-12.4); Monocytes # 1.8 K/mcL (0.0-1.3); Monocytes % 9.9 %; Neutrophils # 14.1 K/mcL (1.6-8.9); Platelet Count 293 K/mcL (140-400); Red Blood Count 3.49 M/mcL (4.19-5.50); Red Cell Distribution Width 13.5 % (11.5-14.5); Segmented Neutrophils % 78.5 %
[2021-10-30] MEDS: *HR* OxyCODONE/APAP 5/325 TABLET PO PRN ×2 (08:38→15:20)
[2021-10-30 08:39] LABS: BUN/Creatinine Ratio 24 (6-26); Blood Urea Nitrogen 24 mg/dL (8-23); Calcium 8.5 mg/dL (8.6-10.3); Carbon Dioxide 28 mEq/L (23-29); Chloride 96 mEq/L (98-107); Glucose 339 mg/dL (70-105); Magnesium 1.9 mg/dL (1.6-2.6); Osmolality,Calculated 289 (280-300); Potassium 4.3 mEq/L (3.5-5.1); Sodium 131 mEq/L (136-145); eGFR For African Americans > 60 (> 60); eGFR For Non-African Americans > 60 (> 60)
[2021-10-30] MEDS: Furosemide 40 MG/4 ML VIAL IVP SCH ×2 (08:39→20:49)
[2021-10-30] MEDS: Aspirin 81 MG TAB.CHEW PO SCH (08:40)
[2021-10-30] MEDS: Pantoprazole 40 MG VIAL IVP SCH (08:40)
[2021-10-30] MEDS: Gabapentin 300 MG CAPSULE PO SCH ×3 (08:40→20:48)
[2021-10-30] MEDS: Chlorhexidine Rinse 15 ML MOUTHWASH MM SCH ×2 (08:40→20:48)
[2021-10-30] MEDS: Insulin LISPRO 300 UNITS/3 ML VIAL SUBQ SCH ×6 (08:43→20:49)
[2021-10-30] MEDS: *HR* Amiodarone 200 MG TABLET PO SCH ×2 (10:32→20:48)
[2021-10-30] MEDS: Finasteride 5 MG TABLET PO SCH (12:48)
[2021-10-30] MEDS: Insulin DETEMIR 100 UNIT/ML X5UNITS SUBQ SCH ×2 (15:42→20:49)
[2021-10-30 22:24] LABS: Bilirubin,Urine Negative (Negative); Blood,Urine Negative (Negative); Clarity,Urine Clear (Clear); Color,Urine Colorless (Yellow); Glucose,Urine (UA) >=1000 mg/dL (Normal); Hyaline Casts,Urine Few per lpf (None Seen); Ketones,Urine Negative (Negative); Leukocyte Esterase,Urine Negative (Negative); Mucus,Urine Few per lpf (None-Few); Nitrite,Urine Negative (Negative); Protein,Urine Negative (Neg-Trace); RBC,Urine 0-3 per hpf (0-3); Specific Gravity,Urine 1.012 (1.010-1.025); Urobilinogen,Urine Normal (Normal); WBC,Urine 0-3 per hpf (0-3)
[2021-10-30] MEDS ORDERED: Amiodarone Premix 150 MG/100 ML BAG IVPB ONE (22:38)
[2021-10-31 02:46] LABS: Basophils # 0.1 K/mcL (0.0-0.2); Basophils % 0.7 %; Eosinophils # 0.3 K/mcL (0.0-0.6); Eosinophils % 2.3 %; Hematocrit 31.3 % (37.5-50.1); Hemoglobin 10.3 g/dL (12.9-16.9); Immature Granulocytes % 0.8 % (0-4); Lymphocytes % 14.4 %; Mean Corpuscular HGB Conc 32.9 g/dL (31.6-35.5); Mean Corpuscular Hemoglobin 30.8 pg (28.0-33.3); Mean Corpuscular Volume 93.7 fL (83.0-100.0); Mean Platelet Volume 9.1 fL (9.4-12.4); Monocytes # 1.4 K/mcL (0.0-1.3); Monocytes % 10.6 %; Neutrophils # 9.7 K/mcL (1.6-8.9); Nucleated Red Blood Cells 0.2 /100 WBC (0); Platelet Count 306 K/mcL (140-400); Red Blood Count 3.34 M/mcL (4.19-5.50); Red Cell Distribution Width 13.5 % (11.5-14.5); Segmented Neutrophils % 71.2 %; White Blood Count 13.5 K/mcL (4.3-11.1)
[2021-10-31 02:58] LABS: BUN/Creatinine Ratio 29 (6-26); Blood Urea Nitrogen 26 mg/dL (8-23); Calcium 8.3 mg/dL (8.6-10.3); Carbon Dioxide 30 mEq/L (23-29); Chloride 95 mEq/L (98-107); Glucose 265 mg/dL (70-105); Magnesium 1.9 mg/dL (1.6-2.6); Osmolality,Calculated 288 (280-300); Potassium 3.6 mEq/L (3.5-5.1); Sodium 132 mEq/L (136-145); eGFR For African Americans > 60 (> 60); eGFR For Non-African Americans > 60 (> 60)
[2021-10-31] MEDS: *HR* Enoxaparin 40 MG/0.4 ML SYRINGE SQ SCH (06:27)
[2021-10-31] MEDS: Insulin LISPRO 300 UNITS/3 ML VIAL SUBQ SCH ×7 (08:04→20:54)
[2021-10-31] MEDS: Furosemide 40 MG/4 ML VIAL IVP SCH (08:05)
[2021-10-31] MEDS: *HR* Amiodarone 200 MG TABLET PO SCH ×2 (08:06→20:54)
[2021-10-31] MEDS: Chlorhexidine Rinse 15 ML MOUTHWASH MM SCH ×2 (08:06→20:54)
[2021-10-31] MEDS: Multivit/Ca/Min/Fe/FA 1 TAB TABLET PO SCH (08:06)
[2021-10-31] MEDS: Cholecalciferol (D-3) 1,000 UNIT (25MCG) TABLET PO SCH (08:06)
[2021-10-31] MEDS: Finasteride 5 MG TABLET PO SCH (08:06)
[2021-10-31] MEDS: Aspirin 81 MG TAB.CHEW PO SCH (08:06)
[2021-10-31] MEDS: Gabapentin 300 MG CAPSULE PO SCH ×3 (08:06→20:55)
[2021-10-31] MEDS: Insulin DETEMIR 100 UNIT/ML X5UNITS SUBQ SCH (08:07)
[2021-10-31] MEDS ORDERED: lisinopriL 10 MG TABLET PO SCH (09:00)
[2021-10-31] MEDS ORDERED: 0.9 % Sodium Chloride 1,000 ML ONE (11:48)
[2021-10-31] MEDS ORDERED: 0.9 % Sodium Chloride 1,000 ML IV ONE (11:54)
[2021-10-31] MEDS: TRESIBA INSULIN SUBQ SCH (20:55)
[2021-10-31] MEDS: [UNRECOGNIZED DRUG - OTHER] SUBQ SCH (20:55)
[2021-10-31] MEDS ORDERED: Insulin DETEMIR 100 UNIT/ML X5UNITS SUBQ SCH (21:00)
[2021-11-01 01:13] LABS: Basophils # 0.1 K/mcL (0.0-0.2); Basophils % 0.5 %; Eosinophils # 0.3 K/mcL (0.0-0.6); Eosinophils % 2.1 %; Hematocrit 29.7 % (37.5-50.1); Hemoglobin 9.8 g/dL (12.9-16.9); Immature Granulocytes % 1.4 % (0-4); Lymphocytes % 15.4 %; Mean Corpuscular Hemoglobin 30.7 pg (28.0-33.3); Mean Corpuscular Volume 93.1 fL (83.0-100.0); Monocytes # 1.6 K/mcL (0.0-1.3); Monocytes % 12.4 %; Neutrophils # 8.9 K/mcL (1.6-8.9); Nucleated Red Blood Cells 0.2 /100 WBC (0); Platelet Count 340 K/mcL (140-400); Red Blood Count 3.19 M/mcL (4.19-5.50); Red Cell Distribution Width 13.3 % (11.5-14.5); Segmented Neutrophils % 68.2 %; White Blood Count 13.1 K/mcL (4.3-11.1)
[2021-11-01 01:34] LABS: BUN/Creatinine Ratio 29 (6-26); Blood Urea Nitrogen 28 mg/dL (8-23); Calcium 7.9 mg/dL (8.6-10.3); Carbon Dioxide 28 mEq/L (23-29); Chloride 98 mEq/L (98-107); Glucose 205 mg/dL (70-105); Magnesium 2.2 mg/dL (1.6-2.6); Osmolality,Calculated 289 (280-300); Potassium 3.8 mEq/L (3.5-5.1); Sodium 134 mEq/L (136-145); eGFR For African Americans > 60 (> 60); eGFR For Non-African Americans > 60 (> 60)
[2021-11-01] MEDS: *HR* Enoxaparin 40 MG/0.4 ML SYRINGE SQ SCH (06:51)
[2021-11-01] MEDS: Aspirin 81 MG TAB.CHEW PO SCH (08:11)
[2021-11-01] MEDS: *HR* Amiodarone 200 MG TABLET PO SCH ×2 (08:11→20:45)
[2021-11-01] MEDS: Insulin LISPRO 300 UNITS/3 ML VIAL SUBQ SCH ×7 (08:11→20:45)
[2021-11-01] MEDS: Cholecalciferol (D-3) 1,000 UNIT (25MCG) TABLET PO SCH (08:11)
[2021-11-01] MEDS: Gabapentin 300 MG CAPSULE PO SCH ×3 (08:11→20:45)
[2021-11-01] MEDS: Multivit/Ca/Min/Fe/FA 1 TAB TABLET PO SCH (08:11)
[2021-11-01] MEDS: Finasteride 5 MG TABLET PO SCH (08:11)
[2021-11-01] MEDS: Chlorhexidine Rinse 15 ML MOUTHWASH MM SCH ×2 (08:12→20:45)
[2021-11-01] MEDS ORDERED: IBUTILIDE IVP ONE (09:08)
[2021-11-01] MEDS ORDERED: Amiodarone Premix 150 MG/100 ML BAG IVPB ONE (09:15)
[2021-11-01] MEDS ORDERED: Amiodarone Premix 360 MG/200 ML BAG IVC ONE (09:15)
[2021-11-01] MEDS ORDERED: Amiodarone Premix 360 MG/200 ML BAG IVC SCH (15:16)
[2021-11-01] MEDS ORDERED: *HR* Metformin 500 MG TABLET PO SCH (17:00)
[2021-11-01] MEDS: [UNRECOGNIZED DRUG - OTHER] SUBQ SCH (20:46)
[2021-11-01] MEDS: TRESIBA INSULIN SUBQ SCH (20:46)
[2021-11-02 02:24] LABS: Hematocrit 29.9 % (37.5-50.1); Hemoglobin 9.8 g/dL (12.9-16.9); Mean Corpuscular HGB Conc 32.8 g/dL (31.6-35.5); Mean Corpuscular Hemoglobin 30.4 pg (28.0-33.3); Mean Corpuscular Volume 92.9 fL (83.0-100.0); Mean Platelet Volume 8.9 fL (9.4-12.4); Platelet Count 390 K/mcL (140-400); Red Blood Count 3.22 M/mcL (4.19-5.50); Red Cell Distribution Width 13.6 % (11.5-14.5); White Blood Count 13.4 K/mcL (4.3-11.1)
[2021-11-02 02:44] LABS: BUN/Creatinine Ratio 24 (6-26); Blood Urea Nitrogen 22 mg/dL (8-23); Calcium 7.8 mg/dL (8.6-10.3); Carbon Dioxide 28 mEq/L (23-29); Chloride 98 mEq/L (98-107); Glucose 147 mg/dL (70-105); Osmolality,Calculated 282 (280-300); Potassium 3.7 mEq/L (3.5-5.1); Sodium 133 mEq/L (136-145); eGFR For African Americans > 60 (> 60); eGFR For Non-African Americans > 60 (> 60)
[2021-11-02] MEDS: *HR* Enoxaparin 40 MG/0.4 ML SYRINGE SQ SCH (06:11)
[2021-11-02] MEDS ORDERED: Calcium Gluconate 1gm/50mL 1 GM/50 ML BAG IVPB ONE (07:34)
[2021-11-02] MEDS: Gabapentin 300 MG CAPSULE PO SCH ×3 (08:36→20:41)
[2021-11-02] MEDS: Cholecalciferol (D-3) 1,000 UNIT (25MCG) TABLET PO SCH (08:36)
[2021-11-02] MEDS: Multivit/Ca/Min/Fe/FA 1 TAB TABLET PO SCH (08:36)
[2021-11-02] MEDS: *HR* Amiodarone 200 MG TABLET PO SCH ×2 (08:37→20:41)
[2021-11-02] MEDS: Finasteride 5 MG TABLET PO SCH (08:37)
[2021-11-02] MEDS: Insulin LISPRO 300 UNITS/3 ML VIAL SUBQ SCH ×7 (08:38→20:41)
[2021-11-02] MEDS: Aspirin 81 MG TAB.CHEW PO SCH (08:38)
[2021-11-02] MEDS: Chlorhexidine Rinse 15 ML MOUTHWASH MM SCH ×2 (08:42→20:40)
[2021-11-02] MEDS ORDERED: Furosemide 40 MG/4 ML VIAL IVP ONE (08:42)
[2021-11-02] MEDS: *HR* Metformin 500 MG TABLET PO SCH (17:22)
[2021-11-02] MEDS: [UNRECOGNIZED DRUG - OTHER] SUBQ SCH (20:40)
[2021-11-02] MEDS: TRESIBA INSULIN SUBQ SCH (20:40)
[2021-11-02] MEDS ORDERED: Melatonin 3 MG TABLET PO SCH (21:00)
[2021-11-03] MEDS: *HR* Enoxaparin 40 MG/0.4 ML SYRINGE SQ SCH (05:02)
[2021-11-03 06:06] LABS: Hematocrit 31.3 % (37.5-50.1); Hemoglobin 10.4 g/dL (12.9-16.9); Mean Corpuscular HGB Conc 33.2 g/dL (31.6-35.5); Mean Corpuscular Volume 93.2 fL (83.0-100.0); Mean Platelet Volume 8.8 fL (9.4-12.4); Platelet Count 437 K/mcL (140-400); Red Blood Count 3.36 M/mcL (4.19-5.50); Red Cell Distribution Width 13.7 % (11.5-14.5); White Blood Count 12.9 K/mcL (4.3-11.1)
[2021-11-03 06:31] LABS: BUN/Creatinine Ratio 23 (6-26); Blood Urea Nitrogen 21 mg/dL (8-23); Calcium 7.9 mg/dL (8.6-10.3); Carbon Dioxide 26 mEq/L (23-29); Chloride 100 mEq/L (98-107); Glucose 181 mg/dL (70-105); Magnesium 2.1 mg/dL (1.6-2.6); Osmolality,Calculated 286 (280-300); Sodium 134 mEq/L (136-145); eGFR For African Americans > 60 (> 60); eGFR For Non-African Americans > 60 (> 60)
[2021-11-03] MEDS ORDERED: Furosemide 40 MG/4 ML VIAL IVP SCH (08:00)
[2021-11-03] MEDS: Cholecalciferol (D-3) 1,000 UNIT (25MCG) TABLET PO SCH (08:17)
[2021-11-03] MEDS: *HR* Metformin 500 MG TABLET PO SCH (08:17)
[2021-11-03] MEDS: Aspirin 81 MG TAB.CHEW PO SCH (08:17)
[2021-11-03] MEDS: Multivit/Ca/Min/Fe/FA 1 TAB TABLET PO SCH (08:18)
[2021-11-03] MEDS: *HR* Amiodarone 200 MG TABLET PO SCH (08:18)
[2021-11-03] MEDS: Finasteride 5 MG TABLET PO SCH (08:18)
[2021-11-03] MEDS: Gabapentin 300 MG CAPSULE PO SCH (08:18)
[2021-11-03] MEDS: Chlorhexidine Rinse 15 ML MOUTHWASH MM SCH (08:19)
[2021-11-03] MEDS: Insulin LISPRO 300 UNITS/3 ML VIAL SUBQ SCH ×4 (08:19→12:30)
[2021-11-03 12:02] VITALS: BP 114/57; PULSE 88; TEMP 98.3; O2SAT 98
== END 2021-11-03 14:00 | disposition home health service (06) | DRG 236 ==
LOC: SAMDAY 06:38 → ICNU 11:11 → 2NNU 10-28 09:41
PROVIDERS: ADMIT Thoracic Surgery (Cardiothoracic Vascular Surgery); ATTEND Thoracic Surgery (Cardiothoracic Vascular Surgery)